=== PATIENT | female | born 1980 | race Caucasian/White ===

== ENCOUNTER 2017-01-27 22:13 | Emergency (ER) | payer SELFPAY ==
[2017-01-27 22:58] LABS: Bilirubin Negative (Negative); Blood, Urine Negative (Negative); Glucose, Urine (Dipstick) Negative (Negative); Leukocyte Trace (Negative); Nitrite Positive (Negative); Protein, Urine (Dipstick) Trace mg/dL (Neg-Trace); pH, Urine 5.5 (5.0-9.0)
[2017-01-27 23:16] LABS: Pregnancy Test - Urine (BHCG) NEGATIVE (NEGATIVE)
[2017-01-27 23:17] LABS: Pregu Control Background? CLEAR/WHITE (CLR/WHITE); Pregu Control Bar Appear? YES (CONTROL BAR); Specific Gravity 1.029 (1.002-1.036)
[2017-01-27 23:30] LABS: Clarity Hazy (Clear); Specific Gravity, Urine 1.029 (1.002-1.036)
[2017-01-27 23:32] LABS: Bacteria/HPF 3+ HPF (None Seen); RBC/HPF 0-3 HPF (0-3)
[2017-01-27 23:33] LABS: Trichomonas/HPF 1+ HPF (None Seen)
[2017-01-27] MEDS ORDERED: Sulfameth/Trimethoprim DS 800-160mg TAB ONE (23:57)
[2017-01-27] MEDS ORDERED: Oseltamivir 75 MG CAP ONE (23:57)
[2017-01-27] MEDS ORDERED: Ondansetron ODT 4 MG TAB ONE (23:58)
[2017-01-27] MEDS ORDERED: metroNIDAZOLE 250 MG TAB ONE (23:58)
== END 2017-01-28 00:35 | disposition home or self-care (01) ==
LOC: MADERS 22:13
DX: N39.0 Urinary tract infection, site not specified (principal); J10.1 Influenza due to other identified influenza virus with other respiratory manifestations
CPT/HCPCS: 81003; 81015; 81025; 87077; 87081; 87086; 87186; 87430; 99283; Q0162

== ENCOUNTER 2017-10-05 21:26 | Emergency (ER) | payer SELFPAY ==
[2017-10-05 21:56] LABS: Bilirubin Negative (Negative); Blood, Urine Negative (Negative); Glucose, Urine (Dipstick) Negative (Negative); Leukocyte Trace (Negative); Nitrite Negative (Negative); Pregnancy Test - Urine (BHCG) Negative (Negative); Pregu Control Background? CLEAR/WHITE (CLR/WHITE); Pregu Control Bar Appear? YES (CONTROL BAR); Protein, Urine (Dipstick) Negative (Neg-Trace); Specific Gravity 1.025 (1.002-1.036); Specific Gravity, Urine 1.025 (1.005-1.030); Urobilinogen 0.2 mg/dL (0.2-1.0)
[2017-10-05 21:57] LABS: Clarity Hazy (Clear)
[2017-10-05 22:00] LABS: RBC/HPF 0-3 HPF (0-3)
[2017-10-05 22:01] LABS: Bacteria/HPF 3+ HPF (None Seen)
[2017-10-05] MEDS ORDERED: Lidocaine 1% 20 ML MDV ONE (22:03)
[2017-10-05] MEDS ORDERED: Azithromycin 250 MG TAB ONE (22:03)
[2017-10-05] MEDS ORDERED: cefTRIAXone\\ROCEPHIN 1 GM VIAL ONE (22:03)
[2017-10-05] MEDS ORDERED: Fluconazole 100 MG TAB ONE (22:03)
== END 2017-10-05 22:25 | disposition home or self-care (01) ==
LOC: MADERS 21:26
DX: N76.0 Acute vaginitis (principal); N39.0 Urinary tract infection, site not specified
CPT/HCPCS: 81003; 81015; 81025; 96372; J0696; J2001